=== PATIENT | female | born 1960 | race Caucasian/White ===

== ENCOUNTER 2017-02-10 13:51 | Emergency (ER) | payer OTHER ==
[~2017-02-10] VITALS: Ht 172.7 cm; Wt 76.4 kg
[~2017-02-10 13:51] MED LIST: AMBIEN5 MG PO; ASPIRIN EC81 MG PO; CALCIUM/D250 MG PO; L-LYSINE500 MG OR; LEVOTHYROXIN100 MCG PO; LOPRESSOR 550 MG/TAB PO; LOPRESSOR50 M1 PO; ROBAXIN-750750 MG OR; SYNTHROID112 MCG PO; TORADOL OR; [UNRECOGNIZED DRUG - OTHER]; [UNRECOGNIZED DRUG - OTHER]
[2017-02-10 15:24] VITALS: BP 118/76
== END 2017-02-10 15:27 | disposition home or self-care (01) | DRG 563 ==
LOC: ED 13:51
DX: S66.911A Strain of unspecified muscle, fascia and tendon at wrist and hand level, right hand, initial encounter (principal); E03.9 Hypothyroidism, unspecified; X50.9XXA Other and unspecified overexertion or strenuous movements or postures, initial encounter; Y93.89 Activity, other specified; Y92.239 Unspecified place in hospital as the place of occurrence of the external cause; Y99.0 Civilian activity done for income or pay

== ENCOUNTER 2017-08-16 12:40 | Emergency (ER) | payer OTHER ==
[~2017-08-16] VITALS: Ht 172.7 cm; Wt 78.0 kg
[2017-08-16 13:02] VITALS: BP 132/79
== END 2017-08-16 13:06 | disposition home or self-care (01) | DRG 605 ==
LOC: ED 12:40
DX: S61.532A Puncture wound without foreign body of left wrist, initial encounter (principal); I48.91 Unspecified atrial fibrillation; E03.9 Hypothyroidism, unspecified; W46.1XXA Contact with contaminated hypodermic needle, initial encounter; Y93.F9 Activity, other caregiving; Y92.238 Other place in hospital as the place of occurrence of the external cause; Y99.0 Civilian activity done for income or pay

== ENCOUNTER → 2018-06-18 | Outpatient (REF) ==
[~2018-06-18] MED LIST changes: +BUPROPION150 M3 PO; +LEVOTHYROXIN137 MCG PO; +VITAMIN B-121000 MCG PO; +VITAMIN D310000 UNI1 PO; +WELLBUTRIN SR150 MG PO
[2018-06-18 12:23] LABS: CHOLESTEROL HDL RATIO 2.1 (<4.4 (CALC))
== END | disposition home or self-care (01) | DRG 951 ==
LOC: LAB 10:05
PROVIDERS: ATTEND Family Medicine
DX: Z02.6 Encounter for examination for insurance purposes (principal)

== ENCOUNTER → 2018-06-25 | Outpatient (REF) | payer OTHER ==
[2018-06-25 10:59] VITALS: BP 129/78
== END | disposition home or self-care (01) | DRG 446 ==
LOC: FIORUCCI 10:30
PROVIDERS: ATTEND Surgery
DX: K82.8 Other specified diseases of gallbladder (principal); R10.11 Right upper quadrant pain

== ENCOUNTER → 2018-06-26 | Outpatient (REF) | payer OTHER | END | disposition home or self-care (01) | DRG 392 | LOC: NUCMED 07:45 | PROVIDERS: ATTEND Surgery | DX: R10.11 Right upper quadrant pain (principal) | CPT/HCPCS: A9537; J2805 ==

== ENCOUNTER 2018-07-17 06:46 | Day surgery (SDC) | payer OTHER ==
[2018-07-17] MEDS ORDERED: PERCOCET 5/325M1 TAB PO (08:32)
[2018-07-17 09:31] VITALS: BP 117/64
== END 2018-07-17 10:55 | disposition home or self-care (01) | DRG 419 ==
LOC: ORM 06:46
PROVIDERS: ATTEND Surgery
PROC: 0FT44ZZ Resection of Gallbladder, Percutaneous Endoscopic Approach (ICD-10-PCS; principal; 2018-07-17)
DX: K81.1 Chronic cholecystitis (principal); K82.8 Other specified diseases of gallbladder
CPT/HCPCS: J0131; J2710; Q9967

== ENCOUNTER 2019-04-17 | Emergency (ER) | payer OTHER ==
[~2019-04-17] MED LIST changes: +PERCOCET 5/325M1 TAB PO
[2019-11-26] MEDS ORDERED: VITAMIN B-12500 MCG PO (13:34)
[2019-11-26] MEDS ORDERED: VITAMIN D3400 UNIT PO (13:34)
[2019-11-26] MEDS ORDERED: MULTI VIT PO (13:34)
[2019-12-25] MEDS ORDERED: PROTONIX40 M2 PO (11:46)
== END 2019-04-17 18:17 | disposition home or self-care (01) | DRG 556 ==
DX: M79.642 Pain in left hand (principal); W22.8XXA Striking against or struck by other objects, initial encounter; Y93.89 Activity, other specified; Y92.89 Other specified places as the place of occurrence of the external cause; Y99.0 Civilian activity done for income or pay

== ENCOUNTER 2019-12-02 15:51 | Emergency (ER) | payer BC ==
[~2019-12-02] VITALS: Ht 170.2 cm; Wt 68.2 kg
[~2019-12-02 15:51] MED LIST changes: +MULTI VIT PO; +VITAMIN B-12500 MCG PO; +VITAMIN D3400 UNIT PO
[2019-12-02 16:33] LABS: HEMATOCRIT 41.3 % (37.0-47.0); HEMOGLOBIN 12.9 g/dl (12.0-16.0); IMMATURE GRANULOCYTES 0.3 % (0.0-5.0); MEAN CORPUSCULAR HGB 28.4 pG CALC (26.0-32.0); MEAN CORPUSCULAR HGB CONC 31.2 g/dL CAL (32.0-36.0); NEUT# 1.6 thou/uL (2.00-7.15); RED BLOOD COUNT 4.54 mill/uL (4.20-5.60); RED CELL DISTRI WIDTH 13.8 % (11.5-15.5)
[2019-12-02 16:53] LABS: ALKALINE PHOSPHATASE 82 u/l (38-126); BILIRUBIN, TOTAL 0.4 mg/dL (0.0-1.4); BUN 21 mg/dL (7-17); BUN/CREATININE RATIO 28 (12-20 (CALC)); CARBON DIOXIDE 26 mmol/l (22-30); CHLORIDE 104 mmol/l (95-108); CREATININE 0.8 mg/dL (0.5-1.0); GFR > 60 ML/MIN (>=60 (CALC)); GFR FOR AFR.AMER. > 60 ML/MIN (>=60 (CALC)); SODIUM 136 mmol/l (137-146); TOTAL PROTEIN 6.7 g/dL (6.3-8.2)
[2019-12-02 16:57] LABS: ANION GAP 10 (6-22 (CALC)); POTASSIUM 3.5 mmol/l (3.5-5.1); SGOT/AST 87 u/l (14-36)
[2019-12-02] MEDS ORDERED: PROTONIX40 M2 PO (20:27)
[2019-12-02 21:04] VITALS: BP 161/79
[2019-12-25] MEDS ORDERED: PROTONIX40 M2 PO (11:46)
== END 2019-12-02 21:00 | disposition home or self-care (01) | DRG 313 ==
LOC: ED 15:51
PROVIDERS: Family Medicine
DX: R07.9 Chest pain, unspecified (principal)

== ENCOUNTER 2019-12-18 06:00 | Day surgery (SDC) | payer BC ==
[~2019-12-18] VITALS: Ht 170.2 cm; Wt 73.9 kg
[~2019-12-18 06:00] MED LIST changes: +PROTONIX40 M2 PO
[2019-12-18 08:33] VITALS: BP 138/75
[2019-12-25] MEDS ORDERED: PROTONIX40 M2 PO (11:46)
== END 2019-12-18 08:20 | disposition home or self-care (01) | DRG 951 ==
LOC: ENDO 06:00
PROVIDERS: ATTEND Surgery
PROC: 0DJD8ZZ Inspection of Lower Intestinal Tract, Via Natural or Artificial Opening Endoscopic (ICD-10-PCS; principal; 2019-12-18)
PROC: 0DB48ZX Excision of Esophagogastric Junction, Via Natural or Artificial Opening Endoscopic, Diagnostic (ICD-10-PCS; 2019-12-18)
DX: Z12.11 Encounter for screening for malignant neoplasm of colon (principal); K21.0 Gastro-esophageal reflux disease with esophagitis; Z83.71 Family history of colonic polyps; Z90.49 Acquired absence of other specified parts of digestive tract; Z20.828 Contact with and (suspected) exposure to other viral communicable diseases